=== PATIENT | female | born 1995 | race Two or more races ===

== ENCOUNTER → 2023-11-06 | Outpatient (REF) | payer OTHER | LOC: M SFHCWAGY 11:09 | PROVIDERS: ATTEND Nurse Practitioner Family | DX: Z12.4 Encounter for screening for malignant neoplasm of cervix (principal); Z11.51 Encounter for screening for human papillomavirus (HPV) | CPT/HCPCS: 87624; G0123 ==

== ENCOUNTER → 2023-11-07 | Outpatient (REF) | payer OTHER ==
[2023-11-07 12:20] LABS: BASO % 0.5 % (0.0-1.0); EOS # 0.2 10^3/uL (0.0-0.5); EOS % 2.5 % (0.0-3.0); HEMATOCRIT 41.5 % (36.0-47.0); LYMPH # 2.3 10^3/uL (1.5-5.0); LYMPH % 35.7 % (24.0-44.0); MEAN CORPUSCULAR HGB CONC 33.7 g/dl (32.0-36.5); MONO # 0.5 10^3/uL (0.0-0.8); MONO % 7.8 % (2.0-8.0); NEUTROPHILS # 3.4 10^3/uL (1.5-8.5); NEUTROPHILS % 53.3 % (36.0-66.0); PLATELET COUNT, AUTOMATED 310 10^3/uL (150-450); RED BLOOD COUNT 4.51 10^6/uL (4.00-5.40); WHITE BLOOD COUNT 6.3 10^3/uL (4.0-10.0)
[2023-11-07 12:25] LABS: ALBUMIN 4.1 G/DL (3.2-5.2); ALKALINE PHOSPHATASE 78 U/L (46-116); ALT/SGPT 25 U/L (7.0-40); AST/SGOT 16 U/L (<34); BILIRUBIN,TOTAL 0.3 MG/DL (0.3-1.2); BLOOD UREA NITROGEN 11 MG/DL (9-23); CALCIUM LEVEL 9.5 MG/DL (8.5-10.1); CARBON DIOXIDE LEVEL 26 MMOL/L (20-31); CHLORIDE LEVEL 108 MMOL/L (98-107); CREATININE FOR GFR 0.87 MG/DL (0.55-1.30); GLOMERULAR FILTRATION RATE > 60.0 (>60); GLUCOSE, FASTING 91 MG/DL (60-100); MAGNESIUM LEVEL 1.9 MG/DL (1.8-2.4); POTASSIUM SERUM 4.5 MMOL/L (3.5-5.1); SODIUM LEVEL 141 MMOL/L (136-145); TOTAL PROTEIN 7.2 G/DL (5.7-8.2)
[2023-11-07 12:26] LABS: FREE T4 0.93 NG/DL (0.89-1.76); THYROID STIMULATING HORMONE 2.201 uIU/ML (0.55-4.78)
[2023-11-07 13:02] LABS: HEMOGLOBIN A1c 5.1 % (4.0-6.0)
== END ==
LOC: M LABDRAWC 11:31
PROVIDERS: ATTEND Nurse Practitioner Family
DX: Z12.4 Encounter for screening for malignant neoplasm of cervix (principal); E04.9 Nontoxic goiter, unspecified; R00.2 Palpitations

== ENCOUNTER → 2025-05-08 | Outpatient (REF) | payer BC ==
[2025-05-08 13:44] LABS: URINE PREG TEST NEGATIVE (NEGATIVE)
== END ==
LOC: M SFHCPLAZ 09:30
PROVIDERS: ATTEND Family Medicine
DX: R10.31 Right lower quadrant pain (principal)

== ENCOUNTER → 2025-05-28 | Outpatient (REF) | payer BC ==
[2025-05-28 15:53] LABS: BASO # 0.0 10^3/uL (0.0-0.2); BASO % 0.4 % (0.0-1.0); EOS # 0.0 10^3/uL (0.0-0.5); EOS % 0.7 % (0.0-3.0); LYMPH # 2.2 10^3/uL (1.5-5.0); LYMPH % 38.6 % (24.0-44.0); MONO # 0.4 10^3/uL (0.0-0.8); MONO % 7.3 % (2.0-8.0); NEUTROPHILS # 3.0 10^3/uL (1.5-8.5); NEUTROPHILS % 52.8 % (36.0-66.0); PLATELET COUNT, AUTOMATED 359 10^3/uL (150-450)
[2025-05-28 16:01] LABS: ALT/SGPT 14 U/L (7.0-40); AST/SGOT 18 U/L (<34); CALCIUM LEVEL 9.5 MG/DL (8.5-10.1); CARBON DIOXIDE LEVEL 27 MMOL/L (20-31); CHLORIDE LEVEL 106 MMOL/L (98-107); CREATININE FOR GFR 0.96 MG/DL (0.55-1.30); GLOMERULAR FILTRATION RATE 83.2 (>60); IRON (FE) 117 UG/DL (50-170); MAGNESIUM LEVEL 1.8 MG/DL (1.8-2.4); PERCENT SATURATION 52.0 % (13.2-45.0); POTASSIUM SERUM 4.6 MMOL/L (3.5-5.1); SODIUM LEVEL 142 MMOL/L (136-145)
[2025-05-28 16:03] LABS: FREE T4 1.40 NG/DL (0.89-1.76)
[2025-05-28 16:10] LABS: THYROID PEROXIDASE ANTIBODY < 28.0 U/ML (<60.0)
[2025-05-28 16:58] LABS: ESTIMATED AVERAGE GLUCOSE 94.0 MG/DL (60-110)
== END ==
LOC: M PLALAB 15:28
PROVIDERS: ATTEND Nurse Practitioner Family
DX: Z01.419 Encounter for gynecological examination (general) (routine) without abnormal findings (principal); R00.2 Palpitations; E04.9 Nontoxic goiter, unspecified

== ENCOUNTER → 2025-06-11 | Outpatient (CLI) | payer BC | LOC: M WHC 12:36 | PROVIDERS: ATTEND Nurse Practitioner Family | DX: R10.20 Pelvic and perineal pain unspecified side (principal) ==